=== PATIENT | female | born 1995 | race Caucasian/White ===

== ENCOUNTER 2018-11-02 11:51 | Inpatient (IN) | payer MEDICAID ==
[2018-11-02] MEDS ORDERED: SUBLIMAZE IV PRN (11:54)
[2018-11-02] MEDS ORDERED: BRETHINE IVP PRN (11:54)
[2018-11-02] MEDS ORDERED: ZOFRAN IV PRN ×2 (11:54→18:39)
[2018-11-02] MEDS ORDERED: BRETHINE SUB-Q PRN (11:54)
[2018-11-02] MEDS ORDERED: AMPICILLIN/NS 2 GM/100 ML 2 GM/100 ML BAG IV ONE (11:54)
[2018-11-02] MEDS ORDERED: XYLOCAINE 2% INFILTRATI ONE (11:54)
[2018-11-02] MEDS ORDERED: STADOL IV PRN (11:54)
[2018-11-02] MEDS ORDERED: MINERAL OIL PO PRN (11:54)
[2018-11-02] MEDS ORDERED: NARCAN 0.4 MG/1 ML IV PRN (11:54)
[2018-11-02] MEDS ORDERED: PITOCin/NS 30 UNIT/500ML 30 UNITS/500 ML BAG IV SCH (12:00)
[2018-11-02] MEDS ORDERED: LACTATED RINGERS 1,000 ML IV SCH (12:00)
[2018-11-02] MEDS ORDERED: PITOCin/NS 20 UNIT/1000ML DRIP 20 UNITS/1,000 ML BAG IV SCH ×2 (12:00→20:00)
--- NOTE | 2018-11-02 12:56 | History and Physical Report ---
History of Present Illness Date of examination: 11/02/18 Date of admission: 11/02/18 11:51 Chief complaint: sent from clinic History of present illness: Pt is a 23 year old female GIGI 10/19/18 at 42w0d who presents from the office with non-reactive NST. She was scheduled for induction at 41 wks but she cancelled it herself because she thought she might go into labor on her own. She has had care at [facility] since 36 wks com plicated by late entry to care, right pyelectasis s/p MFM consult with recommendation for renal ultrasound, polyhydramnios which resolved by 10/06/18. She is GBS positive. Past History Past Medical History: no pertinent history Past Surgical History: no surgical history Family/Genetic History: diabetes Social history: no significant social history - Obstetrical History Expected Date of Delivery: 10/19/18 Actual Gestation: 42 Week(s) 0 Day(s) : 2 Para: 1 Hx # Term Pregnancies: 1 Number of Pregnancies: 0 Spontaneous Abortions: 0 Induced : 0 Number of Living Children: 1 Medications and Allergies Allergies Allergy/AdvReac Type Severity Reaction Status Date / Time No Known Allergies Allergy Verified 03/30/17 23:09 Home Medications Medication Instructions Recorded Confirmed Last Taken Type Ibuprofen [Motrin] 600 mg PO Q8H PRN #30 tablet 03/31/17 Unknown Rx oxyCODONE /ACETAMINOPHEN [Percocet 1 tab PO Q6HR PRN #30 tablet 03/31/17 Unknown Rx 5/325] Active Meds: Active Medications Butorphanol Tartrate (Stadol) 2 mg IV Q2H PRN PRN Reason: Pain , Severe (7-10) Ephedrine Sulfate (Ephedrine Sulfate) 10 mg IV Q2M PRN PRN Reason: Hypotension Fentanyl (Sublimaze) 100 mcg IV Q2H PRN PRN Reason: Labor Pain Ampicillin Sodium (Polycillin/Ns 2 Gm/100 Ml) 2 gm in 100 mls @ 100 mls/hr IV ONCE ONE; Protocol Stop: 11/02/18 12:53 Ampicillin Sodium (Ampicillin/Ns 1 Gm/50 Ml) 1 gm in 50 mls @ 100 mls/hr IV Q4HR ANGELLA; Protocol Lactated Ringer's (Lactated Ringers) 1,000 mls @ 125 mls/hr IV DIRECT ANGELLA Oxytocin/Sodium Chloride (Pitocin/Ns 20 Unit/1000ml Drip) 20 units in 1,000 mls @ 125 mls/hr IV DIRECT ANGELLA Oxytocin/Sodium Chloride (Pitocin/Ns 30 Unit/500ml) 30 units in 500 mls @ 4 mls/hr IV TITR ANGELLA; Protocol Mineral Oil (Mineral Oil) 30 ml PO QHS PRN PRN Reason: Constipation Naloxone HCl (Narcan 0.4 Mg/1 Ml) 0.1 mg IV Q2MIN PRN PRN Reason: Res Rate </= 8 or 02 SAT < 92% Ondansetron HCl (Zofran) 4 mg IV Q8H PRN PRN Reason: Nausea And Vomiting Terbutaline Sulfate (Brethine) 0.25 mg SUB-Q ONCE PRN PRN Reason: Hyperstimulation/Hypertonicity Terbutaline Sulfate (Brethine) 0.25 mg IVP ONCE PRN PRN Reason: Hyperstimulation/Hypertonicity Review of Systems All systems: negative - Vital Signs Vital signs: Vital Signs Pulse BP 64 122/77 11/02/18 12:25 11/02/18 12:25 Temp Pulse Resp BP Pulse Ox 64 122/77 11/02/18 12:25 11/02/18 12:25 - Physical Exam Breasts: Positive: deferred Cardiovascular: Regular rate Lungs: Positive: Clear to auscultation Abdomen: Positive: soft (obese, gravid ) Uterus: Positive: enlarged (gravid ) Extremities: Positive: edema (trace) - Obstetrical FHR: auscultation normal Uterine Contraction Monitor Mode: External Results All other labs normal. Assessment and Plan A: IUP at 42w0d Non reactive NST Obesity GBS positive status P: Admit to labor and delivery Begin GBS prophylaxis Pitocin induction Routine intrapartum care
--- NOTE | 2018-11-02 13:26 | Event Note ---
Date: 11/02/18 Pt anxious about induction process. Reassurance given. Category II tracing. SVE: /-1. AROM- clear copious fluid. Routine intrapartum care.
[2018-11-02 13:30] LABS: Hematocrit 32.3 % (30.3-42.9); Hemoglobin 10.7 gm/dl (10.1-14.3); Mean Corpuscular HGB Conc 33 % (30-34); Mean Corpuscular Volume 72 fl (79-97); Platelet Count 222 K/mm3 (140-440); Red Cell Distribution Width 17.2 % (13.2-15.2)
--- NOTE | 2018-11-02 15:13 | Anesthesia Consultation ---
Anesthesia Consult and Med Hx Date of service: 11/02/18 - Airway Anesthetic Teeth Evaluation: Good ROM Head & Neck: Adequate Mental/Hyoid Distance: Adequate Mallampati Class: Class II Intubation Access Assessment: Probably Good - Pre-Operative Health Status ASA Pre-Surgery Classification: ASA2 Proposed Anesthetic Plan: Epidural, Spinal - Pulmonary Hx Asthma: No COPD: No Hx Pneumonia: No - Cardiovascular System Hx Hypertension: No - Central Nervous System Hx Seizures: No Hx Psychiatric Problems: No - Endocrine Hx Renal Disease: No Hx End Stage Renal Disease: No Hx Hypothyroidism: No Hx Hyperthyroidism: No - Hematic Hx Anemia: No Hx Sickle Cell Disease: No - Other Systems Hx Alcohol Use: No Hx Obesity: Yes
[2018-11-02] MEDS ORDERED: NARCAN 2 MG/2 ML IV PRN (15:14)
[2018-11-02] MEDS ORDERED: fentaNYL-BUPIV 2 MCG/ML-0.125% 200 MCG/100 ML BAG EPIDURAL ONE (15:16)
[2018-11-02] MEDS ORDERED: AMPICILLIN/NS 1 GM/50 ML 1 GM/50 ML BAG IV SCH (15:55)
[2018-11-02] MEDS ORDERED: fentaNYL-BUPIV 2 MCG/ML-0.125% 200 MCG/100 ML BAG EPIDURAL SCH (16:00)
[2018-11-02] MEDS ORDERED: METHERGINE IM ONE (16:08)
--- NOTE | 2018-11-02 16:46 | Procedure Note ---
OB Delivery Note - Delivery Date of Delivery: 11/02/18 Surgeon: SHANNA OROZCO Estimated blood loss: other (400 mL) - Vaginal Delivery presentation: vertex Delivery position: OA Intrapartum events: PROM->1hr before delivery, uterine atony (given Methergine 0.2 mg IM) Delivery induction: oxytocin Delivery augmentation: pitocin Delivery monitor: external FHT, external uterine Route of delivery: Delivery placenta: spontaneous Episiotomy: none Delivery laceration: none Anesthesia: epidural - A at 1 minute: 8 at 5 minutes: 9 Infant Gender: Female (3622g (8lb 0oz) @ 1559 pm)
[2018-11-02] MEDS ORDERED: DERMOPLAST TP PRN (18:39)
[2018-11-02] MEDS ORDERED: PHENERGAN PO PRN (18:39)
[2018-11-02] MEDS ORDERED: TUCKS PAD TP PRN (18:39)
[2018-11-02] MEDS ORDERED: BENADRYL PO PRN (18:39)
[2018-11-02] MEDS ORDERED: NORCO 5/325 PO PRN (18:39)
[2018-11-02] MEDS ORDERED: MILK OF MAGNESIA PO PRN (18:39)
[2018-11-02] MEDS ORDERED: SODIUM CHLORIDE FLUSH SYRINGE 10 ML IV SCH (18:39)
[2018-11-02] MEDS ORDERED: TYLENOL PO PRN (18:39)
[2018-11-02] MEDS ORDERED: LANSINOH TP PRN ×2 (18:39)
[2018-11-02] MEDS ORDERED: DULCOLAX PR PRN (18:39)
[2018-11-02] MEDS ORDERED: PHENERGAN PR PRN (18:39)
[2018-11-02] MEDS: FEOSOL PO SCH (23:23)
[2018-11-02] MEDS: IBUPROFEN PO SCH ×2 (23:23→23:24)
[2018-11-03] MEDS ORDERED: BOOSTRIX IM ONE (06:00)
[2018-11-03 06:03] LABS: Hematocrit 28.6 % (30.3-42.9); Hemoglobin 9.3 gm/dl (10.1-14.3)
--- NOTE | 2018-11-03 09:35 | Progress Note ---
Assessment and Plan A: PPD#1 s/p at term P: Routine care. Anticipate discharge tomorrow. Subjective - Subjective Date of service: 11/03/18 Principal diagnosis: s/p at term Interval history: No issues overnight. Patient reports: appetite normal, voiding normally, pain well controlled, ambulating normally : doing well Objective - Vital Signs Latest vital signs: Vital Signs Temp Pulse Resp BP BP Pulse Ox 11/03/18 01:40 98.6 F 61 18 99/55 97 11/02/18 21:14 97.7 F 71 20 127/85 96 11/02/18 18:58 98.2 F 76 18 117/76 11/02/18 17:23 57 L 124/59 11/02/18 16:53 62 110/55 11/02/18 16:38 83 121/58 11/02/18 16:23 88 130/56 11/02/18 16:20 90 98 11/02/18 16:15 89 99 11/02/18 16:10 89 100 11/02/18 16:08 134 H 131/59 11/02/18 16:05 97 H 99 11/02/18 16:00 83 98 11/02/18 15:55 101 H 100 11/02/18 15:54 111 H 116/62 11/02/18 15:50 72 100 11/02/18 15:45 81 100 11/02/18 15:40 69 100 11/02/18 15:38 69 126/81 11/02/18 15:35 69 100 11/02/18 15:30 63 100 11/02/18 15:26 74 100 11/02/18 15:22 65 114/56 11/02/18 15:20 66 117/63 100 11/02/18 15:18 117/62 11/02/18 15:16 62 102/55 11/02/18 15:15 66 100 11/02/18 15:13 71 115/70 11/02/18 15:11 68 100 11/02/18 15:10 78 104/55 11/02/18 15:08 68 115/57 11/02/18 15:06 72 121/62 11/02/18 15:05 69 100 11/02/18 15:04 68 113/62 11/02/18 15:01 79 99 11/02/18 14:59 77 115/70 11/02/18 14:56 73 139/75 11/02/18 14:55 69 145/74 98 11/02/18 14:50 78 100 11/02/18 14:46 73 98 11/02/18 14:00 96.9 F L 18 11/02/18 12:25 64 122/77 Intake and Output 11/02/18 11/03/18 11/03/18 22:59 06:59 14:59 Intake Total 120 Balance 120 Intake: Oral 120 Other: Total, Intake Amount 120 Estimated Blood Loss 400 - Exam Breasts: Present: deferred Cardiovascular: Present: Regular rate Lungs: Present: Clear to auscultation Abdomen: Present: soft Uterus: Present: fundal height below umbilicus Extremities: Present: normal - Labs Labs: Abnormal lab results 11/02/18 11/03/18 Range/Units 12:44 05:34 Hgb 9.3 L (10.1-14.3) gm/dl Hct 28.6 L (30.3-42.9) % MCV 72 L (79-97) fl MCH 24 L (28-32) pg RDW 17.2 H (13.2-15.2) %
[2018-11-03] MEDS: IBUPROFEN PO SCH ×2 (12:07→23:12)
[2018-11-03] MEDS ORDERED: M-M-R II VACCINE SUB-Q ONE (16:47)
[2018-11-03] MEDS: FEOSOL PO SCH (21:04)
[2018-11-04] MEDS: IBUPROFEN PO SCH ×2 (05:53→11:49)
[2018-11-04 08:22] VITALS: BP 111/64
[2018-11-04] MEDS: FEOSOL PO SCH (09:02)
--- NOTE | 2018-11-04 12:21 | Progress Note ---
Assessment and Plan A/P PPD 1 s/p doing well discharged home f/u in 4 weeks for PP Subjective - Subjective Date of service: 11/04/18 Principal diagnosis: s/p at term Patient reports: appetite normal, voiding normally, pain well controlled, flatus, ambulating normally [place]: doing well Objective - Vital Signs Latest vital signs: Vital Signs Temp Pulse Resp BP BP Pulse Ox 11/04/18 11:49 18 11/04/18 07:42 98.3 F 62 18 111/64 11/04/18 00:22 98.2 F 66 20 103/74 98 11/03/18 17:00 97.9 F 66 20 121/75 100 Intake and Output 11/03/18 11/04/18 11/04/18 23:59 07:59 15:59 Intake Total 480 Balance 480 Intake: Oral 480 Other: Total, Intake Amount 360 # Voids Void 1 - Exam Breasts: Present: normal Cardiovascular: Present: Regular rate, Normal S1 Lungs: Present: Clear to auscultation, Normal air movement Abdomen: Present: normal appearance, soft, normal bowel sounds. Absent: distention, tenderness, guarding Vulva: both: normal Uterus: Present: normal, firm, fundal height below umbilicus. Absent: bogginess, tenderness Extremities: Present: normal Deep Tendon Reflex Grade: Normal +2 Incision: Present: normal
--- NOTE | 2018-11-04 12:23 | Discharge Summary ---
Providers - Providers Date of Admission: 11/02/18 11:51 Date of discharge: 11/04/18 Attending physician: SHANNA OROZCO Primary care physician: SHANNA OROZCO Hospitalization Reason for admission: induction of labor Delivery: Episiotomy: none Laceration: none Incision: normal Other procedures: none complications: none Discharge diagnosis: IUP at term delivered [place] baby: female Hospital course: unremarkable hospital course Condition at discharge: Good Disposition: DC-01 TO HOME OR SELFCARE Plan - Discharge Medications Prescriptions: Ferrous Sulfate [Feosol 325 MG tab] 325 mg PO BID #60 tablet Ibuprofen [Motrin] 800 mg PO Q8HR PRN #30 tablet PRN Reason: Pain, Moderate (4-6) HYDROcodone/APAP 5-325 [[place] 5/325] 1 each PO Q6HR PRN #20 tablet PRN Reason: Pain - Provider Discharge Summary Activity: routine, no sex for 6 weeks, no strenuous exercise Diet: routine Instructions: routine Additional instructions: [] Smoking cessation referral if applicable(refer to patient education folder for contact #) [] Refer to [facility] Booklet Call your doctor immediately for: * Fever > 100.5 * Heavy vaginal bleeding ( >1 pad per hour) * Severe persistent headache * Shortness of breath * Reddened, hot, painful area to leg or breast * Drainage or odor from incision. * Keep incision clean and dry at all times and follow doctor's instructions regarding bathing/showering - Follow up plan Follow up: SHANNA OROZCO MD [Primary Care Provider] - 12/01/18
== END 2018-11-04 18:30 | disposition home or self-care (01) | DRG 775 ==
LOC: LD 11:51 → OB 18:26
PROVIDERS: ADMIT Obstetrics & Gynecology; ATTEND Obstetrics & Gynecology
PROC: 10E0XZZ Delivery of Products of Conception, External Approach (ICD-10-PCS; principal; 2018-11-02)
PROC: 10907ZC Drainage of Amniotic Fluid, Therapeutic from Products of Conception, Via Natural or Artificial Opening (ICD-10-PCS; 2018-11-02)
PROC: 3E033VJ Introduction of Other Hormone into Peripheral Vein, Percutaneous Approach (ICD-10-PCS; 2018-11-02)
PROC: 3E0R3BZ Introduction of Anesthetic Agent into Spinal Canal, Percutaneous Approach (ICD-10-PCS; 2018-11-02)
PROC: 00HU33Z Insertion of Infusion Device into Spinal Canal, Percutaneous Approach (ICD-10-PCS; 2018-11-02)
PROC: 3E0234Z Introduction of Serum, Toxoid and Vaccine into Muscle, Percutaneous Approach (ICD-10-PCS; 2018-11-03)
DX: O42.92 Full-term premature rupture of membranes, unspecified as to length of time between rupture and onset of labor (principal); O99.824 Streptococcus B carrier state complicating childbirth; O99.214 Obesity complicating childbirth; O76 Abnormality in fetal heart rate and rhythm complicating labor and delivery; O62.2 Other uterine inertia; E66.9 Obesity, unspecified; Z3A.42 42 weeks gestation of pregnancy; Z37.0 Single live birth; Z71.3 Dietary counseling and surveillance; Z83.3 Family history of diabetes mellitus; Z23 Encounter for immunization
CPT/HCPCS: 36415; 85014; 85018; 85027; 86592; 86850; 86900; 86901; G0378; J0290; J2210; J2590; J7120